=== PATIENT | male | born 1935 | race Two or more races ===

== ENCOUNTER 2017-05-12 20:04 | Emergency (ER) | payer OTHER ==
[~2017-05-12 20:04] MED LIST: ALBUTEROL4 M1 PO; CARVEDILOL3.125 M1 PO; CHLORTHALIDONE25 MG PO; CLINDAMYCIN HC300 MG PO; COMINH INH; COU10 PO; ENALAPRIL MALE2.5 MG PO; LAC PO; LEVAQUIN750 MG PO; METOPROLOL SUCC25 M1 PO; MUCINEX600 MG PO; PRELONE15 MG/5 ML PO; PROINH INH; PROSCAR5 MG PO; SYNTHROID0.025 MG PO; ZES10 PO
[2017-05-13 00:31] LABS: BASOPHIL % 0.4 % (0-2); PLATELET COUNT 233 x10^3mcL (130-400); RED CELL DISTRIBUTION WIDTH 12.5 % (11.5-14.5)
[2017-05-13 00:42] LABS: CALCIUM 8.8 mg/dL (8.5-10.1); CARBON DIOXIDE 33.2 mmol/L (21-32); CHLORIDE SERUM 105 mmol/L (98-107); GLUCOSE SERUM 107 mg/dL (74-106); POTASSIUM SERUM 4.4 mmol/L (3.5-5.1); SODIUM SERUM 141 mmol/L (136-145)
[2017-05-13 00:52] LABS: ALBUMIN 3.4 g/dL (3.4-5.0); ALKALINE PHOSPHATASE 66 U/L (46-116); ALT/SGPT 19 U/L (16-63); AST/SGOT 17 U/L (15-37); BILIRUBIN TOTAL 0.6 mg/dL (0.20-1.00); TOTAL PROTEIN, SERUM 7.3 g/dL (6.4-8.2)
[2017-05-13 01:42] LABS: UA SPECIFIC GRAVITY 1.025 (1.005-1.035); microscopic required? YES; urine erythrocyte 3+ (NEGATIVE)
[2017-05-13 01:59] VITALS: BP 146/97
== END 2017-05-13 01:59 | disposition home or self-care (01) ==
LOC: ED 20:04
PROVIDERS: Emergency Medicine
DX: R04.0 Epistaxis (principal)
CPT/HCPCS: 36415

== ENCOUNTER 2017-05-13 07:03 | Emergency (ER) | payer OTHER ==
[2017-05-13 08:42] LABS: BASOPHIL % 0.4 % (0-2); PLATELET COUNT 235 x10^3mcL (130-400); RED CELL DISTRIBUTION WIDTH 12.7 % (11.5-14.5)
[2017-05-13 10:03] VITALS: BP 119/78
== END 2017-05-13 10:19 | disposition home or self-care (01) ==
LOC: ED 07:03
PROVIDERS: Specialist
DX: R04.0 Epistaxis (principal); D68.32 Hemorrhagic disorder due to extrinsic circulating anticoagulants; T45.515A Adverse effect of anticoagulants, initial encounter; I10 Essential (primary) hypertension; I48.91 Unspecified atrial fibrillation; M19.90 Unspecified osteoarthritis, unspecified site; Y92.89 Other specified places as the place of occurrence of the external cause
CPT/HCPCS: 36415; J3430

== ENCOUNTER 2019-10-01 10:31 | Inpatient (IN) | payer OTHER ==
[~2019-10-01] VITALS: Ht 165.1 cm; Wt 72.6 kg
[2019-10-01 10:42] VITALS: Ht 165.1 cm; Wt 72.6 kg
[2019-10-01 11:38] LABS: BASOPHIL % 0.1 % (0-2); PLATELET COUNT 224 x10^3mcL (130-400); RED CELL DISTRIBUTION WIDTH 12.2 % (11.5-14.5)
[2019-10-01 12:21] LABS: ALKALINE PHOSPHATASE 55 U/L (46-116); ALT/SGPT 23 U/L (16-63); AST/SGOT 17 U/L (15-37); BILIRUBIN TOTAL 2.1 mg/dL (0.20-1.00); CALCIUM 8.7 mg/dL (8.5-10.1); CARBON DIOXIDE 31.8 mmol/L (21-32); CHLORIDE SERUM 99 mmol/L (98-107); CREATININE SERUM 0.8 mg/dL (0.7-1.3); GLUCOSE SERUM 118 mg/dL (74-106); LIPASE 50 IU/L (73-393); SODIUM SERUM 137 mmol/L (136-145); T4(THYROXINE) 5.4 ug/dL (4.7-13.3); TOTAL PROTEIN, SERUM 7.5 g/dL (6.4-8.2)
[2019-10-01 12:26] LABS: ALBUMIN 3.2 g/dL (3.4-5.0); CHOLESTEROL 125 mg/dL (<200); HDL CHOLESTEROL 33 mg/dL (40-60)
[2019-10-01 13:19] LABS: microscopic required? YES; urine erythrocyte TRACE (NEGATIVE)
[2019-10-01 15:07] VITALS: BP 141/76
[2019-10-01 16:38] VITALS: BP 123/69
[2019-10-01 17:39] VITALS: BP 123/69
[2019-10-01 21:15] VITALS: BP 142/62
[2019-10-02 05:20] VITALS: BP 119/67
[2019-10-02 06:25] LABS: BASOPHIL % 0.2 % (0-2); PLATELET COUNT 210 x10^3mcL (130-400); RED CELL DISTRIBUTION WIDTH 12.2 % (11.5-14.5)
[2019-10-02 06:47] LABS: CALCIUM 8.7 mg/dL (8.5-10.1); CARBON DIOXIDE 29.6 mmol/L (21-32); CHLORIDE SERUM 103 mmol/L (98-107); CREATININE SERUM 0.8 mg/dL (0.7-1.3); GLUCOSE SERUM 151 mg/dL (74-106); POTASSIUM SERUM 3.4 mmol/L (3.5-5.1); SODIUM SERUM 139 mmol/L (136-145)
[2019-10-02 09:04] VITALS: BP 125/65
[2019-10-02 12:22] VITALS: BP 120/61
[2019-10-02 17:28] VITALS: BP 126/5
[2019-10-02 21:08] VITALS: BP 103/65
[2019-10-03 05:44] VITALS: BP 114/93
[2019-10-03 07:05] LABS: BASOPHIL % 0.1 % (0-2); PLATELET COUNT 243 x10^3mcL (130-400); RED CELL DISTRIBUTION WIDTH 12.7 % (11.5-14.5)
[2019-10-03 07:41] LABS: CALCIUM 8.2 mg/dL (8.5-10.1); CARBON DIOXIDE 28.9 mmol/L (21-32); CHLORIDE SERUM 105 mmol/L (98-107); CREATININE SERUM 0.7 mg/dL (0.7-1.3); GLUCOSE SERUM 127 mg/dL (74-106); POTASSIUM SERUM 3.5 mmol/L (3.5-5.1); SODIUM SERUM 141 mmol/L (136-145)
[2019-10-03 08:41] VITALS: BP 121/64
[2019-10-03 13:18] VITALS: BP 129/66
[2019-10-03 17:12] VITALS: BP 127/72
[2019-10-03 20:09] VITALS: BP 127/64
[2019-10-04 05:33] VITALS: BP 125/62
[2019-10-04 06:31] LABS: BASOPHIL % 0.2 % (0-2); PLATELET COUNT 248 x10^3mcL (130-400); RED CELL DISTRIBUTION WIDTH 12.6 % (11.5-14.5)
[2019-10-04 06:39] LABS: CALCIUM 8.3 mg/dL (8.5-10.1); CARBON DIOXIDE 30.8 mmol/L (21-32); CHLORIDE SERUM 106 mmol/L (98-107); CREATININE SERUM 0.8 mg/dL (0.7-1.3); GLUCOSE SERUM 123 mg/dL (74-106); POTASSIUM SERUM 3.5 mmol/L (3.5-5.1); SODIUM SERUM 143 mmol/L (136-145)
[2019-10-04 08:07] VITALS: BP 140/62
[2019-10-04] MEDS ORDERED: LEVAQUIN500 M1 PO (10:05)
[2019-10-04] MEDS ORDERED: PRE20 PO ×2 (10:07)
[2019-10-04] MEDS ORDERED: PREDNISONE5 MG PO (10:08)
[2019-10-04] MEDS ORDERED: PREDNISONE10 MG PO (10:08)
[2019-10-04] MEDS ORDERED: SINGULAIR10 MG PO (10:22)
[2019-10-04 11:21] VITALS: BP 140/62
[2019-10-04 12:00] VITALS: BP 140/62
[2019-10-04 13:23] VITALS: BP 124/68
== END 2019-10-04 13:36 | disposition home or self-care (01) | DRG 193 ==
LOC: ED 10:31 → MU 13:24 → DU 13:24 → MU 10-03 17:22
PROVIDERS: Emergency Medicine; ADMIT Family Medicine
DX: J18.9 Pneumonia, unspecified organism (principal); J96.21 Acute and chronic respiratory failure with hypoxia; J44.0 Chronic obstructive pulmonary disease with (acute) lower respiratory infection; J44.1 Chronic obstructive pulmonary disease with (acute) exacerbation; E87.6 Hypokalemia; I10 Essential (primary) hypertension; I48.91 Unspecified atrial fibrillation; E03.9 Hypothyroidism, unspecified; F17.218 Nicotine dependence, cigarettes, with other nicotine-induced disorders; Z79.01 Long term (current) use of anticoagulants; Z79.52 Long term (current) use of systemic steroids
CPT/HCPCS: 36600; 82962; 83880; 87804; 94150; G0378; J1956; J2920; J2930; J7030; J7620; Q0092